=== PATIENT | female | born 1995 | race African-American/Black ===

== ENCOUNTER 2021-08-03 23:14 | Emergency (ER) | payer OTHER ==
[~2021-08-03] VITALS: Ht 165.1 cm; Wt 63.5 kg
[2021-08-04 00:08] LABS: BASO % 0.4 % (0.0-1.0); EOS % 0.2 % (1.0-4.0); HEMATOCRIT 40.4 % (37.0-47.0); LYMPH # 1.9 10*3/uL (1.3-4.4); LYMPH % 35.1 % (27.0-41.0); MEAN CELL VOLUME 90.4 fl (81.0-99.0); MEAN CORPUSCULAR HGB CONC 33.2 g/dl (33.0-37.0); MEAN PLATELET VOLUME 11.6 fl (9.6-12.3); MONO # 0.6 10*3/uL (0.1-1.0); MONO % 10.3 % (3.0-9.0); NEUT # 2.9 10*3/uL (2.3-7.9); NEUT % 53.8 % (47.0-73.0); PLATELET COUNT AUTOMATED 274 10*3/uL (130-400); RED BLOOD COUNT 4.47 10*6/uL (4.10-5.10); WHITE BLOOD COUNT 5.4 10*3/uL (4.8-10.8)
[2021-08-04 00:26] LABS: ALBUMIN 4.1 gm/dl (3.1-4.5); BUN 8 mg/dl (7-24); CHLORIDE 107 mmol/L (98-107); CREATININE 0.79 mg/dL (0.55-1.02); POTASSIUM 3.2 mmol/L (3.5-5.1); SGOT/AST 11 IU/L (3-35); SGPT/ALT 19 U/L (12-78); SODIUM 140 mmol/L (136-145); TOTAL PROTEIN 8.3 gm/dL (6.4-8.2)
[2021-08-04 00:27] LABS: ACETAMINOPHEN (TYLENOL) < 5.0 ug/ml (10-30); ALKALINE PHOSPHATASE 66 U/L (45-117); CPK 76 U/L (26-192); ETHYL ALCOHOL < 3.0 mg/dl (<3)
[2021-08-04 01:49] LABS: BILIRUBIN Negative (Negative); BLOOD Negative (Negative); CLARITY Cloudy (Clear); COLOR Dark Yellow (Yellow); GLUCOSE Negative (Negative); KETONE Trace (Negative); LEUKO ESTERASE 1+ (Negative); NITRITE Negative (Negative); PH 5.5 (4.5-8.0); SPECIFIC GRAVITY >= 1.030 (1.001-1.030)
[2021-08-04 01:58] LABS: URINE AMPHETAMINES < 1000 (1000ng/ml); URINE BARBITURATES < 200 (200ng/ml); URINE BENZODIAZEPINES < 200 (200ng/ml); URINE CANNABINOIDS (THC) > 50 (50ng/ml); URINE COCAINE < 300 (300ng/ml); URINE METHADONE < 300 (300ng/ml); URINE OPIATES < 300 (300ng/ml)
[2021-08-04 02:00] LABS: URINE PHENCYCLIDINE < 25 (25ng/ml)
[2021-08-04 02:06] LABS: EPITHELIAL CELLS TNTC
[2021-08-04 02:07] LABS: BACTERIA 1+; WBC 31-40 wbc/hpf (0-5)
== END 2021-08-04 17:19 | disposition short-term general hospital (02) ==
LOC: ED 23:14
PROVIDERS: Internal Medicine
DX: F31.9 Bipolar disorder, unspecified (principal); Z20.822 Contact with and (suspected) exposure to COVID-19; F20.9 Schizophrenia, unspecified; Z79.2 Long term (current) use of antibiotics